=== PATIENT | female | born 1975 | race African-American/Black ===

== ENCOUNTER 2021-07-04 09:02 | Inpatient (IN) | payer OTHER, MEDICAID ==
[~2021-07-04] VITALS: Ht 170.2 cm; Wt 102.0 kg
[~2021-07-04 09:02] MED LIST: OME40GT PO
[2021-07-04 10:23] LABS: Hemoglobin 8.7 g/dL (12.2-16.2)
[2021-07-04 10:25] LABS: Basophils # (auto) 0.2 10 ^3/uL (0-0.2); Basophils % (auto) 2.3 % (0.0-2.0); Eosinophils # (auto) 0.1 10 ^3/uL (0-0.8); Eosinophils % (auto) 1.8 % (0.0-7.0); Hematocrit 28.8 % (36.0-46.0); Lymphocytes # (auto) 2.6 10 ^3/uL (0.4-5.4); Lymphocytes % (auto) 35.6 % (10.0-50.0); Mean Corpuscular Hemoglobin 17.8 pg (28.0-32.0); Mean Corpuscular Hgb Conc. 30.3 g/dL (32.0-36.0); Mean Corpuscular Volume 58.6 fL (80.0-100.0); Monocytes # (auto) 0.4 10 ^3/uL (0-1.3); Monocytes % (auto) 4.8 % (0.0-12.0); Neutrophils # (auto) 4.1 10 ^3/uL (1.6-8.6); Neutrophils % (auto) 55.5 % (37.0-80.0); Nucleated Red Blood Cells % 0.1 %; Red Blood Cells 4.91 10^6/uL (4.0-5.20); White Blood Cell 7.3 10^3/uL (4.4-10.8)
[2021-07-04 10:29] LABS: Red Cell Distribution Width 23.2 % (11.8-14.3)
[2021-07-04 10:38] LABS: Potassium 3.5 mmol/L (3.5-5.1)
[2021-07-04 10:45] LABS: Albumin 3.4 g/dL (3.4-5.0); Bilirubin, Total 0.3 mg/dL (0.2-1.0); Calcium 8.8 mg/dL (8.5-10.1); Magnesium 2.2 mg/dL (1.6-2.6); Total Protein 8.7 g/dL (6.4-8.2)
[2021-07-04] MEDS ORDERED: IOHEXOL 350 MG/ML 100ML IJ ONE (11:56)
[2021-07-04] MEDS ORDERED: HEPARIN SODIUM (PORCINE) 5000 UNITS/ML 1ML VIAL IV ONE ×2 (13:00)
[2021-07-04] MEDS ORDERED: NITROGLYCERIN 0.4 MG SL TAB SL PRN (14:00)
[2021-07-04] MEDS ORDERED: HYDROcodone-ACET 5/325MG TAB PO PRN (14:00)
[2021-07-04] MEDS ORDERED: ONDANSETRON HCL 4 MG/2 ML VIAL IV PRN (14:00)
[2021-07-04] MEDS ORDERED: GABAPENTIN 400 MG CAP PO PRN (14:30)
[2021-07-04 14:34] LABS: Urine Bacteria FEW /hpf (None Seen); Urine Blood 3+ /uL (Negative); Urine WBC 14 /hpf (0 - 5)
[2021-07-04] MEDS: HEPARIN DRIP/D5W 100UNITS/ML 250 ML IV SCH ×2 (14:49→21:59)
[2021-07-04 15:40] LABS: INR 1.46 (0.9-1.15)
[2021-07-04 15:48] LABS: Partial Thromboplastin Time 106.5 sec (23.6-33.0)
[2021-07-04] MEDS: OXYCODONE W/ ACETAMINOPHEN 5/325MG TABLET PO PRN (16:36)
[2021-07-04 17:13] VITALS: BP 117/67
[2021-07-04 18:29] VITALS: BP 117/67
[2021-07-04 21:35] LABS: INR 1.34 (0.9-1.15)
[2021-07-04 21:45] LABS: Partial Thromboplastin Time 88.5 sec (23.6-33.0)
[2021-07-04 22:00] VITALS: BP 104/70
[2021-07-05] VITALS: BP 104/70
[2021-07-05 05:00] VITALS: BP 111/71
[2021-07-05 05:03] LABS: Basophils # (auto) 0.1 10 ^3/uL (0-0.2); Eosinophils # (auto) 0.3 10 ^3/uL (0-0.8); Mean Corpuscular Volume 59.2 fL (80.0-100.0); White Blood Cell 7.5 10^3/uL (4.4-10.8)
[2021-07-05 05:12] LABS: Basophils % (auto) 1.9 % (0.0-2.0); Eosinophils % (auto) 3.5 % (0.0-7.0); Hematocrit 26.3 % (36.0-46.0); Hemoglobin 7.9 g/dL (12.2-16.2); Lymphocytes # (auto) 3.5 10 ^3/uL (0.4-5.4); Lymphocytes % (auto) 46.7 % (10.0-50.0); Mean Corpuscular Hemoglobin 17.7 pg (28.0-32.0); Mean Corpuscular Hgb Conc. 29.9 g/dL (32.0-36.0); Monocytes # (auto) 0.6 10 ^3/uL (0-1.3); Monocytes % (auto) 7.6 % (0.0-12.0); Neutrophils % (auto) 40.3 % (37.0-80.0); Nucleated Red Blood Cells % 0.1 %; Red Blood Cells 4.45 10^6/uL (4.0-5.20)
[2021-07-05 05:15] LABS: Red Cell Distribution Width 23.2 % (11.8-14.3)
[2021-07-05 05:23] LABS: Albumin 2.9 g/dL (3.4-5.0); Calcium 8.3 mg/dL (8.5-10.1); Potassium 3.9 mmol/L (3.5-5.1)
[2021-07-05 05:25] LABS: BUN/Creatinine Ratio 21.9
[2021-07-05 05:28] LABS: Bilirubin, Total 0.2 mg/dL (0.2-1.0); Total Protein 7.4 g/dL (6.4-8.2)
[2021-07-05 05:35] LABS: INR 1.32 (0.9-1.15)
[2021-07-05 05:37] LABS: Partial Thromboplastin Time 133.5 sec (23.6-33.0)
[2021-07-05] MEDS: HEPARIN DRIP/D5W 100UNITS/ML 250 ML IV SCH (06:52)
[2021-07-05 08:00] VITALS: BP 105/71
[2021-07-05] MEDS: OXYCODONE W/ ACETAMINOPHEN 5/325MG TABLET PO PRN ×2 (09:53→12:07)
[2021-07-05] MEDS ORDERED: PANTOPRAZOLE 40 MG TAB PO SCH (10:00)
[2021-07-05 11:04] LABS: INR 1.3 (0.9-1.15); Partial Thromboplastin Time 64.1 sec (23.6-33.0)
[2021-07-05 12:00] VITALS: BP 112/72
[2021-07-05] MEDS: MORPHINE SULFATE INJECTION 2 MG/ML SYRG IV PRN ×2 (13:28→19:47)
[2021-07-05 16:00] VITALS: BP 100/61
[2021-07-05 17:10] LABS: INR 1.31 (0.9-1.15); Partial Thromboplastin Time 55.9 sec (23.6-33.0)
[2021-07-05 19:47] VITALS: BP 125/84
== END 2021-07-05 21:07 | disposition short-term general hospital (02) | DRG 176 ==
LOC: ER 09:02 → TELE 13:49 → TELE-EAST 15:48
PROVIDERS: ADMIT Internal Medicine; ATTEND Hospitalist
DX: I26.92 Saddle embolus of pulmonary artery without acute cor pulmonale (principal); E44.1 Mild protein-calorie malnutrition; I82.402 Acute embolism and thrombosis of unspecified deep veins of left lower extremity; D50.9 Iron deficiency anemia, unspecified; E66.9 Obesity, unspecified; I27.20 Pulmonary hypertension, unspecified; K21.9 Gastro-esophageal reflux disease without esophagitis; Z20.822 Contact with and (suspected) exposure to COVID-19; G89.29 Other chronic pain; Z68.35 Body mass index [BMI] 35.0-35.9, adult
CPT/HCPCS: 36415; 71046; 71275; 80053; 81001; 83735; 83880; 84443; 84484; 84702; 85025; 85379; 85610; 85730; 93005; 93306; 93970; 96365; 96376; G0378